=== PATIENT | female | born 1970 | race Caucasian/White ===

== ENCOUNTER 2019-03-03 11:47 | Emergency (ER) | payer OTHER ==
[2019-03-03 11:57] VITALS: BP 172/95
--- NOTE | 2019-03-03 13:02 | UC ---
Respiratory Complaint HPI - HPI Summary HPI Summary: 49-year-old female presents with 9 day history of nasal congestion, sinus pressure, bilateral ear fullness, chest congestion, and harsh nonproductive cough. Symptoms are associated with some general malaise, fatigue, and body aches. States over the past 2-3 days the cough has worsened, she has become short of breath, and feels that her chest is "tight". States she has used her son's nebulizer a few times with improvement in her symptoms. Patient is a smoker. Denies fever, chills, sore throat, chest pain, palpitations, abdominal pain, nausea, or vomiting. - History of Current Complaint Chief Complaint: UCGeneralIllness Stated Complaint: CHEST CONGESTION Time Seen by Provider: 03/03/19 12:52 Hx Obtained From: Patient Hx Last Menstrual Period: 02/13/19 Pain Intensity: 3 - Allergies/Home Medications Allergies/Adverse Reactions: Allergies Allergy/AdvReac Type Severity Reaction Status Date / Time No Known Allergies Allergy Verified 03/03/19 12:01 Home Medications: Home Medications Carvedilol TAB* [Coreg TAB*] 3.125 mg PO DAILY WITH MEAL 03/03/19 [History Confirmed 03/03/19] Sertraline* [Zoloft*] 25 mg PO DAILY 03/03/19 [History Confirmed 03/03/19] PMH/Surg Hx/FS Hx/Imm Hx Cardiovascular History: Hypertension - Surgical History Surgical History: Yes Surgery Procedure, Year, and Place: [facility] x2 - Family History Known Family History: Positive: Non-Contributory - Social History Occupation: Works From/At Home Lives: With Family Alcohol Use: Daily Substance Use Type: None Smoking Status (MU): Heavy Every Day Tobacco Smoker - Immunization History Most Recent Tetanus Shot: over ten years Review of Systems All Other Systems Reviewed And Are Negative: Yes Constitutional: Negative: Fever, Chills Skin: Negative: Rash Eyes: Negative: Drainage, Eye Redness ENT: Positive: Nasal Discharge, Sinus Congestion, Sinus Pain/Tenderness. Negative: Sore Throat Respiratory: Positive: Shortness Of Breath, Cough Cardiovascular: Negative: Palpitations, Chest Pain Gastrointestinal: Negative: Abdominal Pain, Vomiting, Diarrhea, Nausea Genitourinary: Positive: Negative Musculoskeletal: Positive: Negative Neurological: Positive: Negative Is Patient Immunocompromised?: No Physical Exam - Summary Physical Exam Summary: GENERAL APPEARANCE: Well developed, well nourished, alert and cooperative, and appears to be in no acute distress. EYES: Conjunctiva clear. No drainage. EARS: External auditory canals and tympanic membranes clear, hearing grossly intact. NOSE: Moderate nasal congestion. No nasal discharge. Maxillary sinus tenderness. THROAT: Pharynx normal. No tonsilar inflammation, swelling, exudate, or lesions. Uvula midline. NECK: Neck supple, non-tender without lymphadenopathy. CARDIAC: Normal S1 and S2. No S3, S4 or murmurs. Rhythm is regular. There is no peripheral edema, cyanosis or pallor. Extremities are warm and well perfused. Capillary refill is less than 2 seconds. Peripheral pulses intact. LUNGS: Diffuse bilateral wheezing with diminished breath sounds. Harsh, non- productive bronchospastic cough. ABDOMEN: Positive bowel sounds. Soft, nondistended, nontender. No guarding or rebound. No masses or hepatosplenomegally. MUSKULOSKELETAL: ROM intact to all extremities. No joint erythema or tenderness. Normal muscular development. Normal gait. SKIN: Skin normal color, texture and turgor with no lesions or eruptions. Triage Information Reviewed: Yes Vital Signs: Initial Vital Signs Temp 97.7 F 03/03/19 11:53 Pulse 74 03/03/19 11:53 Resp 19 03/03/19 11:53 BP 172/95 03/03/19 11:53 Pulse Ox 98 03/03/19 11:53 Vital Signs Reviewed: Yes Respiratory Course/Dx - Course Course Of Treatment: 49-year-old female presents with 9 day history of nasal congestion, sinus pressure, bilateral ear fullness, chest congestion, and harsh nonproductive cough. Symptoms are associated with some general malaise, fatigue, and body aches. States over the past 2-3 days the cough has worsened, she has become short of breath, and feels that her chest is "tight". States she has used her son's nebulizer a few times with improvement in her symptoms. Patient is a smoker. Denies fever, chills, sore throat, chest pain, palpitations, abdominal pain, nausea, or vomiting. Afebrile. Hypertensive otherwise vital signs stable. Patient had moderate nasal congestion, maxillary sinus tenderness, diffuse bilateral wheezes with diminished breath sounds, and a harsh, nonproductive, bronchospastic cough. Remainder of exam was unremarkable. Patient was given a DuoNeb treatment with improvement in her symptoms. Patient states she was breathing much easier afterwards and she had clear bilateral breath sounds with good air exchange. Considering the duration and worsening of her symptoms I'm recommending that we treat her with an antibiotic for an upper respiratory infection with reactive airway disease. She is to start Augmentin 875 mg twice a day 10 days. I will also place her on prednisone 50 mg daily 5 days to treat the reactive airway disease and give her a prescription for an albuterol inhaler as well as albuterol nebulizer solution to use every 4-6 hours as needed for shortness of breath or wheezing. She was also given a prescription for Tessalon Perles 1 capsule every 8 hours as needed for cough. She is to follow-up at the [facility] or with her primary care provider in 3-5 days for recheck of symptoms especially if symptoms are not improving. Anticipatory guidance and warning symptoms were reviewed with the patient. Verbalizes understanding and agrees with plan of care. - Differential Dx/Diagnosis Differential Diagnosis/HQI/PQRI: Bronchitis, Influenza, Lower Resp Infection, Other - URI, RAD Provider Diagnosis: URI (upper respiratory infection), Reactive airway disease Discharge ED - Sign-Out/Discharge Documenting (check all that apply): Patient Departure All imaging exams completed and their final reports reviewed: No Studies - Discharge Plan Condition: Stable Disposition: HOME Prescriptions: Albuterol 2.5MG/3ML (0.083%)* [Ventolin 2.5 MG/3 ML NEB.ISIDORO*] 2.5 mg INH Q4H PRN #100 neb.isidoro PRN Reason: Sob/Wheezing Albuterol HFA INHALER* [Ventolin HFA Inhaler*] 2 puff INH Q4H PRN #1 mdi PRN Reason: Sob/Wheezing Amoxicillin/Clavulanate TAB* [Augmentin TAB 875*] 875 mg PO BID #20 tab Benzonatate CAP* [Tessalon 100 MG CAP*] 100 mg PO TID PRN #21 cap PRN Reason: Cough predniSONE TAB* [Deltasone TAB*] 50 mg PO DAILY #5 tab Patient Education Materials: Upper Respiratory Infection (ED) Referrals: No Primary Care Phys,NOPCP [Primary Care Provider] - [facility] [Outside] Additional Instructions: Your history and exam are consistent with an upper respiratory infection with reactive airway disease (wheezing). Considering the duration and worsening of your symptoms we will start you on an antibiotic. Start Augmentin 875 mg twice a day 10 days. Be sure to take with food to avoid upset stomach. Complete the entire course even if feeling better. Take prednisone 50 mg daily 5 days to help reduce the inflammation your airways and improve the wheezing. Use albuterol inhaler or nebulizer every 4-6 hours as needed for shortness of breath, wheezing, or coughing fits. Drink plenty of fluids. Use an [id number] decongestant such as Sudafed according to directions for the congestion.. Take over the counter acetaminophen (Tylenol) or ibuprofen (Advil, Motrin) according to directions as needed for pain or fever. Use Tessalon Perles one capsule every 8 hours as needed for cough. Follow up with the [facility] or with your primary care provider in 3-5 days especially if symptoms persist. Seek immediate medical attention in the emergency room if you have fever greater than 100.5 F despite taking acetaminophen or ibuprofen, have chest pain , difficulty breathing, are unable to swallow, or have any worsening of symptoms. - Billing Disposition and Condition Condition: STABLE Disposition: Home
[2019-03-03] MEDS ORDERED: Albuterol/Ipratropium NEB.SOL* Albuterol 2.5 MG/Ipratropium 0.5 MG 3 ML INH ONE (13:09)
== END 2019-03-03 13:44 | disposition home or self-care (01) ==
LOC: UCEAST 11:47
DX: J06.9 Acute upper respiratory infection, unspecified (principal); J45.909 Unspecified asthma, uncomplicated; I10 Essential (primary) hypertension; F17.290 Nicotine dependence, other tobacco product, uncomplicated; Z79.899 Other long term (current) drug therapy
CPT/HCPCS: 99202; A9270-GY; G0463